=== PATIENT | female | born 1950 | race Caucasian/White ===

== ENCOUNTER 2017-02-04 07:21 | Day surgery (SDC) | payer MEDICARE, OTHER ==
--- NOTE | ~2017-02-04 | EGD ---
EGD REPORT [facility] [address] [id number] NAME: JENNIFER JENSEN : [birth year] STATUS : REG [facility]#: [id number] AGE: 66 ADM/REG DATE : 02/04/17 MR#: [id number] REPORT SERV DATE: 02/04/17 DICTATED BY: LEXI JAMES DATE: 02/04/17 REPORT STATUS : Draft [facility] DATE: 02/04/17 End[facility] Patient Name: Jennifer Jensen Date of : 1950 Attending MD: LEXI JAMES MD Procedure Date No Time: 02/04/2017 Procedure: Colonoscopy Indications: Screening for colorectal malignant neoplasm, This is the patient's first colonoscopy Referring MD: ERON NAPIER MD, Wiley Melton Medicines: See the Anesthesia note for documentation of the administered medications Complications: No immediate complications. Procedure: Pre-Anesthesia Assessment: - ASA Grade Assessment: III - A patient with severe systemic disease. After I obtained informed consent, the scope was passed under direct vision. Throughout the procedure, the patient's blood pressure, pulse, and oxygen saturations were monitored continuously. The PCF [id number] was introduced through the anus and advanced to the terminal ileum, with identification of the appendiceal orifice and IC valve. The colonoscopy was performed without difficulty. The patient tolerated the procedure well. The quality of the bowel preparation was adequate. Findings: The perianal and digital rectal examinations were normal. The terminal ileum appeared normal. A few diverticula were found in the sigmoid colon. Internal hemorrhoids were found during retroflexion and were small. Impression: - The examined portion of the ileum was normal. - Diverticulosis in the sigmoid colon. - Internal hemorrhoids. Recommendation: - Patient has a contact number available for emergencies. The signs and symptoms of potential delayed complications were discussed with the patient. Return to normal activities tomorrow. Written discharge instructions were provided to the patient. - Regular diet. - Continue present medications. - Repeat colonoscopy in 10 years for screening purposes. - Repeat colonoscopy in 10 years. IF develop symptoms EGD REPORT [address] [place]. [address] NAME: JENNIFER JENSEN : [birth year] STATUS : REG [facility] PAT#: [id number] AGE: 66 ADM/REG DATE : 02/04/17 MR#: [id number] REPORT SERV DATE: 02/04/17 DICTATED BY: LEXI JAMES DATE: 02/04/17 REPORT STATUS : Draft TRANSCRIBED BY: [employer] DATE: 02/04/17 like bleeding or diarrhea, or Family history of colon cancer or polyps before age 60, you could require sooner colonoscopy - Please register at [email or web address]. This will be the way for you to receive test results in future. Procedure Code(s): --- Professional --- 99014, Colonoscopy, flexible, proximal to splenic flexure; diagnostic, with or without collection of specimen(s) by brushing or washing, with or without colon decompression (separate procedure) Diagnosis Code(s): --- Professional --- K64.8, Other hemorrhoids K57.30, Diverticulosis of large intestine without perforation or abscess without bleeding Z12.11, Encounter for screening for malignant neoplasm of colon CPT copyright 2013 [employer]. All rights reserved. The codes documented in this report are preliminary and upon regional sales manager review may be revised to meet current compliance requirements. Lexi James MD LEXI JAMES MD 02/04/2017 9:22 AM This report has been signed electronically. Number of Addenda: 0 Note Initiated On: 02/04/2017 8:57 AM Scope Withdrawal Time 0 hours 6 minutes 30 seconds [id number] [place] [id number]
[~2017-02-04 07:21] MED LIST: ASAB PO; DIOV80 PO
== END 2017-02-04 23:59 | disposition home or self-care (01) ==
LOC: DMU 07:21
PROVIDERS: Internal Medicine Gastroenterology
PROC: 0DJD8ZZ Inspection of Lower Intestinal Tract, Via Natural or Artificial Opening Endoscopic (ICD-10-PCS; principal; 2017-02-04 09:00)
DX: Z12.11 Encounter for screening for malignant neoplasm of colon (principal); K64.8 Other hemorrhoids; K57.30 Diverticulosis of large intestine without perforation or abscess without bleeding; F17.210 Nicotine dependence, cigarettes, uncomplicated; J45.909 Unspecified asthma, uncomplicated; Z98.890 Other specified postprocedural states